=== PATIENT | female | born 1985 | race Caucasian/White ===

== ENCOUNTER → 2017-09-06 | Outpatient (CLI) | payer OTHER ==
--- NOTE | 2017-09-06 12:41 | CPEEG ---
[f rep st] ELECTROENCEPHALOGRAM DATE OF STUDY: 09/06/2017 INTERPRETATION: This short-term video EEG monitoring session is abnormal due to the presence of inde pendent, bitemporal potentially epileptogenic abnormalities. These findings would be consistent with a focal seizure disorder. The patient did not have any clinical events during the video EEG monitor ing session. REPORT: This short-term video EEG monitoring session contains 10-11 Hz alpha activity over the poste rior head regions. The primary feature of this study was the presence of independent, bilateral ante rior temporal sharp waves. These were present at rest. There was no specific additional activation with photic stimulation or hyperventilation. The patient became drowsy and fell into sustained sleep during the study. During drowsiness and sleep, there was continued activation of independent, bitem poral sharp waves. There were no clinical events recorded during the short-term EEG video monitoring session. /[id number]/[id number]
== END ==
LOC: FCPNEURO 07:59
PROVIDERS: ATTEND Psychiatry & Neurology Neurology
DX: R56.9 Unspecified convulsions (principal); R41.3 Other amnesia; R94.01 Abnormal electroencephalogram [EEG]